=== PATIENT | male | born 1950 | race Caucasian/White ===

== ENCOUNTER → 2019-01-15 | Outpatient (CLI) | payer MEDICARE ==
[2019-01-15 12:17] LABS: Basophils # (A) 0.1 k/uL (0-0.2); Basophils % (A) 1 %; Eosinophils # (A) 0.2 k/uL (0-0.7); Eosinophils % (A) 3 %; HCT 41.7 % (39.0-53.0); HGB 13.1 gm/dL (13.0-17.5); Lymphocytes % (A) 15 %; MCH 29.8 pg (25.0-35.0); MCHC 31.5 g/dL (31.0-37.0); MCV 94.7 fL (80.0-100.0); Mean Platelet Volume 7.8; Monocytes # (A) 0.5 k/uL (0-1.0); Monocytes % (A) 7 %; Neutrophils # (A) 4.9 k/uL (1.3-7.7); Neutrophils % (A) 72 %; Platelet Count 244 k/uL (150-450); RDW 14.9 % (11.5-15.5); WBC 6.8 k/uL (3.8-10.6)
[2019-01-15 12:21] LABS: Partial Thromboplastin Time 23.9 sec (22.0-30.0); Prothrombin Time 10.3 sec (9.0-12.0)
[2019-01-15 12:29] LABS: Albumin 4.2 g/dL (3.5-5.0); Calcium 9.9 mg/dL (8.4-10.2); Potassium 5.3 mmol/L (3.5-5.1); Total Bilirubin 0.4 mg/dL (0.2-1.3); Total Protein 6.9 g/dL (6.3-8.2)
[2019-01-15 12:30] LABS: Appearance,Urine Clear (Clear); Bilirubin,Urine Negative (Negative); Blood,Urine Negative (Negative); Color,Urine Yellow; Glucose,Urine (UA) Negative (Negative); Ketones,Urine Negative (Negative); Leukocyte Esterase,Urine Negative (Negative); Mucus,Urine Rare /hpf; Nitrite,Urine Negative (Negative); PH, Urine 5.5 (5.0-8.0); Protein,Urine 2+ (Negative); Specific Gravity,Urine 1.011 (1.001-1.035); Squamous Epithelial Cell,Urine <1 /hpf (0-4); Urobilinogen,Urine <2.0 mg/dL (<2.0); WBC,Urine 1 /hpf (0-5)
== END | disposition home or self-care (01) ==
LOC: LABPAT 10:57
PROVIDERS: ATTEND Orthopaedic Surgery
DX: Z01.818 Encounter for other preprocedural examination (principal); Z01.812 Encounter for preprocedural laboratory examination
CPT/HCPCS: 80053; 81001; 85025; 85610; 85730; 87070; 93005

== ENCOUNTER 2019-02-05 10:12 | Day surgery (SDC) | payer MEDICARE ==
[~2019-02-05 10:12] MED LIST: DEXAMETHASONE SOD PHOSPHATE 10 MG/ML 1 ML VIAL IV ONE; LIDOCAINE 1% 20 ML VIAL (10MG/ML) FOR IV START INTRADERMA PRN; MELOXICAM 7.5 MG TAB PO ONE; MIDAZOLAM 2 MG/2 ML VIAL IV PRN; ONDANSETRON 4 MG/2 ML VIAL IVP ONE; TRANEXAMIC ACID 1,000 MG in SODIUM CHLORIDE 0.9% 100 ML IVPB ONE; fentaNYL (PF) 50 MCG/ML 2 ML AMP IV PRN
[2019-02-05] MEDS ORDERED: ACETAMINOPHEN TAB 500 MG TAB PO ONE (10:48)
[2019-02-05] MEDS ORDERED: DEXAMETHASONE SOD PHOSPHATE 10 MG/ML 1 ML VIAL PO ONE (10:53)
[2019-02-05] MEDS: LACTATED RINGERS 1,000 ML IV SCH ×7 (10:53→23:07)
[2019-02-05] MEDS: VANCOMYCIN 1,750 MG in SODIUM CHLORIDE 0.9% 500 ML 500 ML IVPB SCH (11:06)
[2019-02-05] MEDS ORDERED: MIDAZOLAM PF (FBP) 2 MG/2 ML VIAL IVP ONE (11:08)
[2019-02-05] MEDS ORDERED: ROPIVACAINE 0.2%-NS ON-Q PUMP 1,090 MG, EMPTY PAIN BALL 1 EACH MISCELLANE PRN (11:50)
[2019-02-05] MEDS ORDERED: TRANEXAMIC ACID 1,000 MG/10 ML VIAL ONE (12:22)
[2019-02-05] MEDS ORDERED: SODIUM CHLORIDE 0.9% 100 ML BAG ONE (12:22)
[2019-02-05] MEDS ORDERED: GLYCOPYRROLATE 0.2 MG/ML 2 ML VIAL ONE (12:22)
[2019-02-05] MEDS ORDERED: PROPOFOL 10 MG/ML 20 ML VIAL IV ONE (12:22)
[2019-02-05] MEDS ORDERED: MIDAZOLAM 2 MG/2 ML VIAL ONE (12:22)
[2019-02-05] MEDS ORDERED: fentaNYL (PF) 50 MCG/ML 2 ML AMP ONE (12:22)
[2019-02-05] MEDS ORDERED: ROPIVACAINE 246.25 MG, EPINEPHrine 0.5 MG, KETOROLAC 30 MG, cloNIDine HCL/PF 80 MCG, WA... MISCELLANE ONE ×5 (12:52)
[2019-02-05] MEDS ORDERED: ceFAZolin 3,000 MG in SODIUM CHLORIDE 0.9% IRRIGATIO 3,000 ML IRRIGATION ONE (13:23)
[2019-02-05] MEDS ORDERED: LACTATED RINGERS 1,000 ML IV ONE (14:09)
[2019-02-05] MEDS ORDERED: ONDANSETRON 4 MG/2 ML VIAL IVP PRN (14:46)
[2019-02-05] MEDS ORDERED: hydrOXYzine PAMOATE 25 MG CAP PO PRN (14:46)
[2019-02-05] MEDS ORDERED: HYDROcodone/APAP 5-325MG 1 EACH TAB PO PRN ×2 (14:46)
[2019-02-05] MEDS ORDERED: NA PHOS,M-B/NA PHOS,DI-BA 133 ML ENEMA RECTAL PRN (14:46)
[2019-02-05] MEDS ORDERED: NALOXONE 0.4 MG/ML 1 ML VIAL IV PRN (14:46)
[2019-02-05] MEDS ORDERED: TEMAZEPAM 15 MG CAP PO PRN (14:46)
[2019-02-05] MEDS ORDERED: BISACODYL 10 MG SUPP RECTAL PRN (14:46)
[2019-02-05] MEDS ORDERED: MAGNESIUM HYDROXIDE 2,400 MG/10 ML CUP PO PRN (14:46)
[2019-02-05] MEDS ORDERED: HYDROmorphone 0.5 MG/0.5 ML SYRINGE IVP PRN ×3 (14:46)
--- NOTE | 2019-02-05 15:37 | XR ---
EXAMINATION TYPE: XR knee limited RT DATE OF EXAM: 02/05/2019 COMPARISON: NONE HISTORY: 69-year-old male evaluation for postoperative abnormality and alignment TECHNIQUE: 2 views FINDINGS: Images show placement of right total knee arthroplasty. Distal femoral and proximal tibial components of the prosthesis are well seated without periprosthetic fracture. Alignment grossly anatomic. Anter ior soft tissue swelling with intra-articular air in joint fluid relating to recent operation. IMPRESSION: Uncomplicated postoperative appearance right total knee arthroplasty.
--- NOTE | 2019-02-05 16:41 | P.CONS ---
History of Present Illness - Reason for Consult Hyperkalemia - History of Present Illness 69-year-old pleasant gentleman was admitted for right knee arthroplasty success underwent surgery. Patient is on IV normal saline at 100 mL per hour now patient is found to have elevated potassium of 5.1 nonhemolyzed sample. Patient is on MELINA inhibitor for blood pressure along with amlodipine in the beta ko as well as hydralazine only once a day. Patient denied any fever chills just came out of anesthesia because of which she doesn't have any pain at this time. Patient doesn't have a surgical drain. is on aspirin twice a day for DVT prophylaxis Review of Systems REVIEW OF SYSTEMS: CONSTITUTIONAL: No fever, no malaise, no fatigue. HEENT: No recent visual problems or hearing problems. Denied any sore throat. CARDIOVASCULAR: No chest pain, orthopnea, PND, no palpitations, no syncope. PULMONARY: No shortness of breath, no cough, no hemoptysis. GASTROINTESTINAL: No diarrhea, no nausea, no vomiting, no abdominal pain. NEUROLOGICAL: No headaches, no weakness, no numbness. HEMATOLOGICAL: Denies any bleeding or petechiae. GENITOURINARY: Denies any burning micturition, frequency, or urgency. MUSCULOSKELETAL/RHEUMATOLOGICAL: Denies any joint pain, swelling, or any muscle pain. ENDOCRINE: Denies any polyuria or polydipsia. The rest of the 14-point review of systems is negative. Past Medical History Past Medical History: Hyperlipidemia, Hypertension Additional Past Medical History / Comment(s): GOUT History of Any Multi-Drug Resistant Organisms: None Reported Past Surgical History: Appendectomy, Orthopedic Surgery Additional Past Surgical History / Comment(s): BILATERAL KNEE ARTHROSCOPY Past Anesthesia/Blood Transfusion Reactions: Motion Sickness Additional Past Anesthesia/Blood Transfusion Reaction / Comm: SLOW TO WAKE UP. Past Psychological History: No Psychological Hx Reported Smoking Status: Never smoker Past Alcohol Use History: Occasional Past Drug Use History: None Reported - Past Family History Sister(s) Family Medical History: Cancer Additional Family Medical History / Comment(s): LUNG Medications and Allergies Home Medications Medication Instructions Recorded Confirmed Type Acetaminophen [Tylenol] 325 - 650 mg PO Q6H PRN 01/30/19 01/30/19 History Allopurinol [Zyloprim] 300 mg PO QAM 01/30/19 01/30/19 History Atorvastatin [Lipitor] 10 mg PO QAM 01/30/19 01/30/19 History Carvedilol [Coreg] 6.25 mg PO BID 01/30/19 01/30/19 History Ibuprofen [Motrin Ib] 200 - 400 mg PO Q6H PRN 01/30/19 01/30/19 History amLODIPine BESYLATE/BENAZEPRIL 1 cap PO QAM 01/30/19 01/30/19 History [amLODIPine BESYLATE/BENAZEPRIL 10-20 MG] hydrALAZINE HCL [Apresoline] 25 mg PO QAM 01/30/19 01/30/19 History Aspirin 325 mg PO BID #1 tab 02/05/19 Rx HYDROcodone/APAP 7.5-325MG [[place] 1 - 2 tab PO Q4-6H PRN #50 tab 02/05/19 Rx 7.5-325] Sennosides-Docusate Sodium 1 tab PO BID #60 tablet 02/05/19 Rx [Senokot-S] Allergies Allergy/AdvReac Type Severity Reaction Status Date / Time No Known Allergies Allergy Verified 01/30/19 08:52 Physical Exam Vitals: Vital Signs Temp Pulse Pulse Resp BP Pulse Ox 02/05/19 15:45 76 16 141/82 99 02/05/19 15:30 74 16 126/77 99 02/05/19 15:15 75 18 138/81 94 L 02/05/19 15:00 78 18 132/79 99 02/05/19 14:45 97.1 F L 78 21 122/67 98 02/05/19 11:23 74 17 132/63 95 02/05/19 10:25 99.3 F 72 17 143/70 98 Intake and Output 02/05/19 02/05/19 02/05/19 06:59 14:59 22:59 Intake Total 1601 300 Output Total 50 Balance 1551 300 Intake: IV 1601 300 Output: Estimated Blood Loss 50 Other: Weight 114.39 kg PHYSICAL EXAMINATION: GENERAL: The patient is alert and oriented x3, not in any acute distress. Well developed, well nourished. HEENT: Pupils are round and equally reacting to light. EOMI. No scleral icterus. No conjunctival pallor. Normocephalic, atraumatic. No pharyngeal erythema. No thyromegaly. CARDIOVASCULAR: S1 and S2 present. No murmurs, rubs, or gallops. PULMONARY: Chest is clear to auscultation, no wheezing or crackles. ABDOMEN: Soft, nontender, nondistended, normoactive bowel sounds. No palpable organomegaly. MUSCULOSKELETAL: No joint swelling or deformity. Right knees post surgically wrapped EXTREMITIES: No cyanosis, clubbing, or pedal edema. NEUROLOGICAL: Gross neurological examination did not reveal any focal deficits. SKIN: No rashes. Results CBC & Chem 7: 02/05/19 10:37 Labs: Abnormal Lab Results - Last 24 Hours (Table) 02/05/19 Range/Units 10:37 Potassium 5.5 H (3.5-5.1) mmol/L Assessment and Plan Plan: -Hyperkalemia secondary to MELINA inhibitor which will be held along with amlodipine as well to prevent perioperative hypotension IV fluids are expected to bring the potassium down will order basic volley profile for tomorrow -Hypertension: Will be continued rest of the antidepressive medications will be held because of above-mentioned reasons -Right knee arthroplasty DVT prophylaxis as mentioned above pain management as per primary service -Hyperlipidemia -History of gout
[2019-02-05] MEDS: CARVEDILOL 6.25 MG TAB PO SCH (17:47)
[2019-02-05] MEDS ORDERED: SENNOSIDES-DOCUSATE SODIUM 1 EACH TAB PO SCH (21:00)
[2019-02-05] MEDS: ASPIRIN 325 MG TAB PO SCH (22:25)
[2019-02-06 03:26] VITALS: PULSE 79
[2019-02-06] MEDS: LACTATED RINGERS 1,000 ML IV SCH ×3 (04:50→11:23)
[2019-02-06] MEDS: VANCOMYCIN 1,750 MG in SODIUM CHLORIDE 0.9% 500 ML 500 ML IVPB SCH (05:49)
[2019-02-06 07:32] VITALS: BP 134/80; RESP 15; TEMP 98.5
--- NOTE | 2019-02-06 07:54 | P.PN ---
Progress Note - Text 712am 02/06 69-year-old male status post total knee replacement by Dr. Felipe. Patient has an On-Q pump for postop pain control with the solution running at 8 mL an hour with a VAS of 2. Plan to continue On-Q pump infusion
[2019-02-06 08:42] LABS: Potassium 5.1 mmol/L (3.5-5.1)
--- NOTE | 2019-02-06 08:55 | P.DS ---
Providers Expected date of discharge: 02/06/19 Attending physician: Scotty Felipe Consults: 02/05/19 14:46 Consult Physician Routine Consulting Provider: Mariah Jordan Consult Reason/Comments: Medical management Do you want consulting provider notified?: Yes Primary care physician: Shilo Lanier - Discharge Diagnosis(es) (1) Osteoarthritis of right knee Current Visit: Yes Status: Acute (2) Status post total right knee replacement Current Visit: Yes Status: Acute Hospital Course: This is a 69-year-old male who was last seen with complaint of continued right knee pain. The patient has a known history of degenerative arthritis of the right knee and presents to discuss surgical options. After discussion and consideration the patient elects to proceed with total right knee arthroplasty. The patient is seen preoperatively by Dr. Lanier and cleared for surgery. The patient is admitted to [facility] for total right knee arthroplasty. The procedures performed without complication or sequelae. Patient is doing well postoperatively. Vital signs are stable at discharge. Labs are stable at discharge. the patient is ambulating well with walker with minimal assistance. The patient is discharged to home on postop day #1 pending medical clearance. Please see orders and refer to the [facility] rec for accurate list of medications. Patient Condition at Discharge: Good Plan - Discharge Summary Discharge Rx Participant: Yes New Discharge Prescriptions: New Aspirin 325 mg PO BID #1 tab HYDROcodone/APAP 7.5-325MG [[place] 7.5-325] 1 - 2 tab PO Q4-6H PRN #50 tab PRN Reason: Pain Sennosides-Docusate Sodium [Senokot-S] 1 tab PO BID #60 tablet No Action Allopurinol [Zyloprim] 300 mg PO QAM Atorvastatin [Lipitor] 10 mg PO QAM Acetaminophen [Tylenol] 325 - 650 mg PO Q6H PRN PRN Reason: Pain hydrALAZINE HCL [Apresoline] 25 mg PO QAM Ibuprofen [Motrin Ib] 200 - 400 mg PO Q6H PRN PRN Reason: Pain Carvedilol [Coreg] 6.25 mg PO BID amLODIPine BESYLATE/BENAZEPRIL [amLODIPine BESYLATE/BENAZEPRIL 10-20 MG] 1 cap PO QAM Discharge Medication List Acetaminophen [Tylenol] 325 - 650 mg PO Q6H PRN 01/30/19 [History] Allopurinol [Zyloprim] 300 mg PO QAM 01/30/19 [History] Atorvastatin [Lipitor] 10 mg PO QAM 01/30/19 [History] Carvedilol [Coreg] 6.25 mg PO BID 01/30/19 [History] Ibuprofen [Motrin Ib] 200 - 400 mg PO Q6H PRN 01/30/19 [History] amLODIPine BESYLATE/BENAZEPRIL [amLODIPine BESYLATE/BENAZEPRIL 10-20 MG] 1 cap PO QAM 01/30/19 [History] hydrALAZINE HCL [Apresoline] 25 mg PO QAM 01/30/19 [History] Aspirin 325 mg PO BID #1 tab 02/05/19 [Rx] HYDROcodone/APAP 7.5-325MG [[place] 7.5-325] 1 - 2 tab PO Q4-6H PRN #50 tab 02/05/19 [Rx] Sennosides-Docusate Sodium [Senokot-S] 1 tab PO BID #60 tablet 02/05/19 [Rx] Follow up Appointment(s)/Referral(s): Elisa Silva, PAC [PHYSICIAN [employer]OR] - 2 Weeks Activity/Diet/Wound Care/Special Instructions: May bear wt as tolerated w walker. May shower if no drainage from incision. Begin outpatient physical therapy this week. Discharge Disposition: HOME SELF-CARE
[2019-02-06 09:00] LABS: Basophils % (A) 0 %; Eosinophils % (A) 0 %; HCT 38.4 % (39.0-53.0); HGB 11.9 gm/dL (13.0-17.5); Lymphocytes # (A) 0.9 k/uL (1.0-4.8); Lymphocytes % (A) 8 %; MCH 30.6 pg (25.0-35.0); MCV 98.7 fL (80.0-100.0); Mean Platelet Volume 7.5; Monocytes # (A) 0.5 k/uL (0-1.0); Monocytes % (A) 5 %; Neutrophils # (A) 9.9 k/uL (1.3-7.7); Neutrophils % (A) 87 %; Platelet Count 221 k/uL (150-450); RBC 3.89 m/uL (4.30-5.90); WBC 11.4 k/uL (3.8-10.6)
[2019-02-06] MEDS ORDERED: MELOXICAM 7.5 MG TAB PO SCH (09:00)
[2019-02-06] MEDS ORDERED: ALLOPURINOL 300 MG TAB PO SCH (09:00)
[2019-02-06] MEDS ORDERED: ATORVASTATIN 10 MG TAB PO SCH (09:00)
[2019-02-06] MEDS: ASPIRIN 325 MG TAB PO SCH (09:13)
[2019-02-06] MEDS: CARVEDILOL 6.25 MG TAB PO SCH (09:13)
[2019-02-06] MEDS ORDERED: SODIUM CHLORIDE 0.9% 1,000 ML IV SCH (10:30)
--- NOTE | 2019-02-06 11:17 | P.PN ---
Subjective Patient was admitted for right knee arthroplasty sepsis and underwent surgery. Patient takes amlodipine and lisinopril commendation pill when he came in patient's potassium is 5.5 and this is secondary to the lisinopril. Patient blood pressures are well within normal limits without these medications today morning since his post surgery his blood pressures will be normal. As the patient to check his blood pressures on regular basis 3 times a day at home taken to primary care physician I'll discontinue MELINA inhibitor patient will be given prescription for Norvasc patient can be started if needed as an outpatient on MELINA inhibitor at a lower dose than what he is on right now with recheck potassium in about 3-4 days as of now disc any MELINA inhibitor. Patient is only taking a very minimal dose of hydralazine only once a day which the is probably not needed and that will be discontinued at this time. 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 Constitutional: Denied any fatigue denied any fever. Cardio vascular: denied any chest pain, palpitations Gastrointestinal denied any nausea vomiting Pulmonary: Denied any shortness of breath cough Neurologic denied any new focal deficits All inpatient medications were reviewed and appropriate changes in these medications as dictated in the interval history and assessment and plan. Objective - Vital Signs Vital signs: Vital Signs Temp 98.5 F 02/06/19 07:00 Pulse 79 02/06/19 07:00 Resp 15 02/06/19 07:00 BP 134/80 02/06/19 07:00 Pulse Ox 92 L 02/06/19 07:00 Intake & Output 02/05/19 02/06/19 02/06/19 18:59 06:59 18:59 Intake Total 1901 730 350 Output Total 50 Balance 1851 730 350 Weight 114.39 kg Intake: IV 1901 Intake, IV Titration 550 Amount Vancomycin 1,750 mg In 500 Sodium Chloride 0.9% 500 ml 500 ml @ 167 mls/hr IVPB Q24H ELO Rx#: [id number] ceFAZolin 2 gm In Sodium 50 Chloride 0.9% 50 ml @ 100 mls/hr IVPB Q8HR ELO Rx# :[id number] Oral 180 350 Output: Estimated Blood Loss 50 Other: Voiding Method Toilet # Voids 3 3 - Exam PHYSICAL EXAMINATION: GENERAL: The patient is alert and oriented x3, not in any acute distress. Well developed, well nourished. HEENT: Pupils are round and equally reacting to light. EOMI. No scleral icterus. No conjunctival pallor. Normocephalic, atraumatic. No pharyngeal erythema. No thyromegaly. CARDIOVASCULAR: S1 and S2 present. No murmurs, rubs, or gallops. PULMONARY: Chest is clear to auscultation, no wheezing or crackles. ABDOMEN: Soft, nontender, nondistended, normoactive bowel sounds. No palpable organomegaly. MUSCULOSKELETAL: No joint swelling or deformity. EXTREMITIES: No cyanosis, clubbing, or pedal edema. Right knee postsurgically packed NEUROLOGICAL: Gross neurological examination did not reveal any focal deficits. SKIN: No rashes - Labs CBC & Chem 7: 02/06/19 07:42 02/06/19 07:42 Labs: Abnormal Lab Results - Last 24 Hours (Table) 02/06/19 02/06/19 Range/Units 07:42 07:42 WBC 11.4 H (3.8-10.6) k/uL RBC 3.89 L (4.30-5.90) m/uL Hgb 11.9 L (13.0-17.5) gm/dL Hct 38.4 L (39.0-53.0) % Neutrophils # 9.9 H (1.3-7.7) k/uL Lymphocytes # 0.9 L (1.0-4.8) k/uL Chloride 112 H (98-107) mmol/L Carbon Dioxide 19 L (22-30) mmol/L BUN 42 H (9-20) mg/dL Creatinine 2.09 H (0.66-1.25) mg/dL Glucose 130 H (74-99) mg/dL Assessment and Plan Plan: -Hyperkalemia secondary to MELINA inhibitor which was discontinued -Chronic kidney disease stage 3-4 -Hypertension: -Right knee arthroplasty -Hyperlipidemia -History of gout Patient can be discharged from medical perspective with follow-up with PCP and nephrology as outpatient
--- NOTE | 2019-02-07 07:55 | P.ANPRN ---
Procedure Note - Anesthesia - Nerve Block Performed Right Adductor Canal Infusion Time Out Performed: Yes Date of Procedure: 02/05/19 Procedure Start Time: 11:08 Procedure Stop Time: :17 Location of Patient Procedure: PreOp Indication: Acute Post-Operative Pain, Requested by physician Sedation Type: Sedate with meaningful contact maintained Preparation: Sterile Prep, Sterile Dressing Position: Supine Catheter: Indwelling Needle Types: Pajunk Needle Gauge: 21 Technique: Ultrasound Injectate: 0.5% Ropivacaine (see comment for volume) (ropi .5% 20cc) Blood Aspirated: No Pain Paresthesia on Injection Noted: No Resistance on Injection: Normal Events: Uneventful and Well Tolerated
--- NOTE | 2019-02-07 13:03 | P.OP ---
Date of Procedure: 02/05/19 Procedure(s) Performed: PREOPERATIVE DIAGNOSIS: Right knee severe osteoarthritis with genu varum POSTOPERATIVE DIAGNOSIS: Right knee severe osteoarthritis with genu varum OPERATION: Right knee cemented total replacement arthroplasty. ANESTHESIA: Spinal ESTIMATED BLOOD LOSS: 100 ml. ELECTRIC ARC FURNACE OPERATOR: Elisa Silva PA-C (assistance with: patient positioning, retraction, exposure, hemostasis, leg positioning, implantation, irrigation, closure, dressing) COMPLICATIONS: None apparent. COMPONENTS IMPLANTED: Journey II total knee system from [facility], [facility] INDICATIONS: Mr. Pino is a 69-year-old male with a history of right knee osteoarthritis. The patient's knee is end-stage, and conservative management has failed. The operation of knee replacement has been discussed at length in the office, as well as potential risks and complications. These are inclusive of, but not limited to: bleeding, infection, scarring, discomfort, blood vessel and nerve damage, need for further surgery, failure to relieve symptoms, persistence, recurrence, or worsening of problems, loosening, dislocation, wear, blood clot, pulmonary embolism, , gait dysfunction, stiffness, and other risks as discussed in the office. The patient elects to proceed and the consent form has been signed. PROCEDURE: The patient was taken to the operating room and positioned on the operating room table in the supine position. Anesthesia was initiated. Care was taken to make sure that all pressure points were adequately padded. The right operative lower extremity was prepped and draped in the usual aseptic fashion using ChloraPrep. Ioban drape was used for the case and the patient received intravenous antibiotics within one hour of the incision. A pneumotourniquet and leg bolanos were used for the case. The limb was exsanguinated with an Esmarch bandage and the tourniquet was inflated to 350 mm Hg. Time-out was called confirming the patient's identity, side, procedure and administration of antibiotics and tranexamic acid. The incision was then created midline directly over the left knee, carried down through skin and into the subcutaneous tissues and down to fascia. Full thickness subcutaneous medial flap was developed. Medial parapatellar arthrotomy was performed and the interior of the knee was inspected. There was end-stage osteoarthritis of the knee with a mild to moderate genu varum type deformity. The fat pad was excised and proximal medial release on the tibia was completed using meticulous dissection and a curved osteotome. The anterior cruciate ligament was taken down. Note was made of significant attrition of the anterior and significant degenerative appearance of the cruciate ligaments. The exposure was excellent. The knee was flexed 90 degrees and the patella was everted. The [employer] pre- made distal cutting block was attached and pinned into position. The planned cut was analyzed visually and found to be satisfactory without the need for any adjustment. The oscillating saw was then used to make the distal femoral cut. This cut was confirmed to be flat with the flat end of an osteotome. The retractors were placed around the tibia and the tibial surface was addressed. The [employer] pre-made guide was placed onto the exposed tibial surface and pinned into position to edith the rotational alignment. The alignment of the guide was checked for depth of plannned resection, slope, and varus valgus. Guide was confirmed to be in good position and the tibial cut was then created with protection of the posterior neurovascular structures and the collateral ligaments. The tibial cut surface was removed and sized. Femoral sizing was then accomplished using posterior referencing. Care was taken to analyze the posterior condyles for signs of deficiency or severe wear, and adjustments to the guide were made, as appropriate. 3 degree external r otation pins were placed relative to [place]'s line. The cutting jig for the femur was applied to these pins. The planned cuts were further analyzed prior to performing them with the oscillating saw. No femoral notching was produced. Bone fragments were removed and the cut surfaces were finished, as necessary, with a reciprocating saw. Spacer block technique was then used to confirm that the flexion and extension gaps were equal. Soft tissue releases and adjustment of the tibial and/or femoral cuts were made, as necessary, until the gaps were equal. This included release of the posterior cruciate ligament, which was excessively tight in this patient. The femur was then further finished for a posterior cruciate ligament substituting component. Patellar resurfacing was performed using a reamer. The size of the required patellar component was estimated and the patellar surface was then reamed down to a residual thickness which would recreate the jamul thickness with the component. The exact placement of the patellar component was adjusted for position based on preoperative x-rays and intraoperative findings. Prior to placing trial components, anesthetic solution consisting of ropivicaine with epinephrine, ketorolac, and clonidine was injected carefully and methodically in a grid pattern using aspiration technique into the soft tissue around the knee circumferentially, starting with the deeper tissues first and progressing to fascia, and then finally the skin/subcutaneous tissue. Particular care was taken when injecting the posterior capsule. The trial components were inserted. The tibial tray was allowed to self center and the patella was noted to track very well. The position of the tibial component was marked and noted to be nearly exactly aligned with the pre-drilled holes from the [employer] guide. The tibia was then finished for a stemmed tibial component. Cement was mixed on the back table and applied to the final components. Trial components were removed and the cut surfaces of the bone were pulse lavaged thoroughly and dried. Cement was then applied to the tibial surface and pressurized into the surface using finger pressurization technique. The tibial component was then applied and excess cement was removed after it was impacted securely and noted to be flush with the cut surface. In similar fashion, the cement was applied to the cut femoral surface, pressurized in using finger pressurization and the component was impacted into place. Excess cement was removed. The polyethylene spacer was then implanted and locked into position. The patellar component was then applied in similar technique and a patellar clamp was used to hold the patella in place as the cement hardened. Once the cement had fully hardened, the knee was reinspected. Any other cement extrusion was removed and final kinematic testing showed range of motion from 0 to 130 degrees with excellent stability, both medially and laterally and appropriate alignment of the leg. Patellar tracking was excellent. The knee was then thoroughly pulse lavaged with normal saline. The tourniquet was deflated and hemostasis was obtained with electrocautery and IV tranexamic acid, 1 g given at the start of the operation and 1 g at the start of closure. Closure was with #2 Ethibond in the fascia/capsule and supplemented with #2 Quill, 2-0 Vicryl suture was used for the subcutaneous tissues and 3-0 Quill for the skin. Dermabond/Steri-Strips were then applied. A lightly compressive dressing was applied using Webril and an Oneal wrap. The patient was then transferred to stretcher and taken to the recovery room in stable condition. Sponge and needle counts were correct.
== END 2019-02-06 14:07 | disposition home or self-care (01) ==
LOC: OR 10:12 → 4SSUR 14:45 → OR 02-06 14:07
PROVIDERS: ATTEND Orthopaedic Surgery
DX: M17.11 Unilateral primary osteoarthritis, right knee (principal); M21.161 Varus deformity, not elsewhere classified, right knee; I12.9 Hypertensive chronic kidney disease with stage 1 through stage 4 chronic kidney disease, or unspecified chronic kidney disease; N18.3 Chronic kidney disease, stage 3 (moderate); E78.5 Hyperlipidemia, unspecified; T46.4X5A Adverse effect of angiotensin-converting-enzyme inhibitors, initial encounter; E87.5 Hyperkalemia; M10.9 Gout, unspecified; R06.83 Snoring; E66.9 Obesity, unspecified; Z68.32 Body mass index [BMI] 32.0-32.9, adult; Z79.899 Other long term (current) drug therapy; Z79.1 Long term (current) use of non-steroidal anti-inflammatories (NSAID); Z90.49 Acquired absence of other specified parts of digestive tract; Z97.3 Presence of spectacles and contact lenses; Z80.1 Family history of malignant neoplasm of trachea, bronchus and lung
CPT/HCPCS: 27447; 64448; 97161; 80048; 84132; 85025; 88300; 73560; C1713; C1776; C1772; J2250 ×2; J0171; J3370 ×2; J1100; J0690 ×3; J2405; J3010; J1885; J2795 ×2; J2704; J0735